=== PATIENT | female | born 1955 | race Hispanic/Latino ===

== ENCOUNTER 2017-03-24 08:05 | Outpatient (CLI) | payer BC | END 2017-03-24 08:06 | disposition home or self-care (01) | LOC: BICMAMMO 08:05 | PROVIDERS: ATTEND Family Medicine | DX: Z12.31 Encounter for screening mammogram for malignant neoplasm of breast (principal) | CPT/HCPCS: 77063; 77067 ==

== ENCOUNTER 2018-04-07 08:17 | Outpatient (CLI) | payer BC ==
--- NOTE | 2018-04-07 09:28 | BD ---
DEXA BONE DENSITY STUDY: HISTORY: A 63-year-old female with osteoporosis. FINDINGS: Exam: DEXA Bone Density Lumbar Spine: BMD (g/cm2) L1 0.744 T-Score: -2.2 L2 0.802 T-Score: -2.1 L3 0.865 T-Score: -2.0 L4 0.922 T-Score: -1.3 L1-L4 0.838 T-Score: -1.9 Evidence for osteopenia with increased risk for fracture. Left Hip: Femoral Neck: 0.674 T-Score: -1.6 Total Femur: 0.914 T-Score: -0.2 Evidence for osteopenia with increased risk for fracture. FRAX score is not reported because the patient is premenopausal. POS: [facility]
== END 2018-04-07 08:18 | disposition home or self-care (01) ==
LOC: BICMAMMO 08:17
PROVIDERS: ATTEND Family Medicine
DX: Z12.31 Encounter for screening mammogram for malignant neoplasm of breast (principal); Z13.820 Encounter for screening for osteoporosis; M85.852 Other specified disorders of bone density and structure, left thigh; M85.88 Other specified disorders of bone density and structure, other site
CPT/HCPCS: 77063; 77067; 77080

== ENCOUNTER 2019-04-13 09:11 | Outpatient (CLI) | payer BC ==
--- NOTE | 2019-04-13 10:29 | MMO ---
Bilateral MAMMO Bilat Screen [facility]. CLINICAL HISTORY: Patient is 64 years old and is seen for screening. The patient has no family history of breast cancer. The patient has no personal history of cancer. VIEWS: The views performed were: bilateral craniocaudal with tomosynthesis and bilateral mediolateral oblique with tomosynthesis. FILMS COMPARED: The present examination has been compared to prior imaging studies performed at [facility] on 01/07/2015, 02/05/2016, 03/24/2017 and 04/07/2018. This study has been interpreted with the assistance of computer-aided detection. MAMMOGRAM FINDINGS: The breasts are heterogeneously dense, which could obscure a lesion on mammography. There are no suspicious masses, suspicious calcifications, or new areas of architectural distortion. IMPRESSION: THERE IS NO MAMMOGRAPHIC EVIDENCE OF MALIGNANCY. A ROUTINE FOLLOW-UP MAMMOGRAM IN 1 YEAR IS RECOMMENDED. THE RESULTS OF THIS EXAM WERE SENT TO THE PATIENT. ACR BI-RADS Category 1 - Negative MAMMOGRAPHY NOTE: 1. A negative mammogram report should not delay a biopsy if a dominant of clinically suspicious mass is present. 2. Approximately 10% to 15% of breast cancers are not detected by mammography. 3. Adenosis and dense breasts may obscure an underlying neoplasm. Reported by: KAREN LEE MD Electonically Signed: [id number]
== END 2019-04-13 09:12 | disposition home or self-care (01) ==
LOC: BICMAMMO 09:11
PROVIDERS: ATTEND Family Medicine
DX: Z12.31 Encounter for screening mammogram for malignant neoplasm of breast (principal)
CPT/HCPCS: 77063; 77067